=== PATIENT | female | born 2000 | race Caucasian/White ===

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

== ENCOUNTER → 2022-01-27 | Outpatient (CLI) | payer OTHER, SELFPAY | END | disposition home or self-care (01) | LOC: LABSPEC 15:08 | PROVIDERS: PCP Pediatrics; Referring Provider Otolaryngology; Visit Provider Otolaryngology | DX: J01.90 Acute sinusitis, unspecified (principal) | CPT/HCPCS: 87070; 87077; 87186; 87205 ==

== ENCOUNTER 2024-03-25 19:12 | Emergency (ER) | payer OTHER, SELFPAY ==
[2024-03-25 19:12] VITALS: BP 131/90; PULSE 129; RESP 18; TEMP 38.4; O2SAT 100; BMI 45.4
[2024-03-25 19:54] VITALS: TEMP 39.6
--- NOTE | 2024-03-25 20:02 | EDS_ITS ---
HPI History of Present Illness Chief Complaint: Fever Informant: patient and parent Onset/Context/Timing Onset: Yesterday Context: Gradual Onset Timing: Continuous Quality: Stabbing, throbbing Location: Forehead Worsened by: Nothing Relieved by: Nothing Narrative Narrative: Patient presents with fever, headache, nausea, vomiting, and sore throat that began yesterday. Patient had a fever up to 103 at home. Mother states patient had episode where she was convulsing. Mother stated this only lasted for few seconds. Mother states that the patient woke up quickly from this. Mother states she was somewhat confused after this but that only lasted for few seconds. Patient admits to a cough. Patient also admits to some wheezing. Patient states she had an injection of Dupixent recently but has never had any problems from prior injections. 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 current occupational exposures/hazards: No pets and animals: No leisure activities: sports history of recent travel: No sexually active: No Smoking Status: Never smoker alcohol intake: never substance use type: does not use well-balanced diet: daily or most days caffeine: Yes (1x/week) Type: coffee eating out: rarely or never during the past year weight has: remained stable what type of physical activity do you participate in: other details: [employer] Softball team - 1st place frequency: 5-6 times per week duration: > 90 minutes/day jonah/evangelical: [employer] seatbelt use: always do you feel safe at home: Yes ROS ROS ED Constitutional Constitutional ED: Reports fever(s); Denies chills Eyes Eyes: Denies blurry vision or change in vision ENT ENT ED: Reports sore throat; Denies rhinorrhea Cardiovascular Cardiovascular: Denies chest pain or palpitations Respiratory/Chest Respiratory/Chest: Reports cough; Denies dyspnea Gastrointestinal Gastrointestinal: Reports nausea and vomiting Genitourinary Genitourinary ED: Denies dysuria or hematuria Musculoskeletal Musculoskeletal: Reports neck pain; Denies back pain Integumentary Denies abscess or rash Neurologic Neurologic: Reports headache(s); Denies weakness Allergic/Immunologic Allergic/Immunologic ED: Denies mouth swelling or urticaria EXAM Physical Exam Const Vital Signs: 03/25/24 19:12 03/25/24 19:46 03/25/24 19:54 Temperature 101.2 F H 103.2 F H Temperature Source Temporal Oral Pulse Rate 129 H Respiratory Rate 18 Respiratory Effort Normal Non-Labored Blood Pressure 131/90 H Blood Pressure Mean 103 Pulse Ox 100 Oxygen Delivery Method Room Air 03/25/24 20:17 03/25/24 21:00 03/25/24 22:00 Temperature 103.2 F H 103.1 F H 99 F Temperature Source Oral Oral Oral Pulse Rate 121 H 118 H 108 H Respiratory Rate 20 H 20 H 20 H Respiratory Effort Blood Pressure 124/73 H 126/79 H 103/70 Blood Pressure Mean 90 94 81 Pulse Ox 97 98 99 Oxygen Delivery Method Room Air Room Air Room Air 03/25/24 23:00 Temperature Temperature Source Pulse Rate 108 H Respiratory Rate 16 Respiratory Effort Blood Pressure 119/62 Blood Pressure Mean 81 Pulse Ox 97 Oxygen Delivery Method Room Air Positive well nourished and well developed General Appearance ED: well developed and NAD HEENT Reports moist mucous membranes HEENT Narrative: There is some mild tenderness over the frontal sinuses. There is no tenderness over the maxillary sinuses. Neck supple and no JVD Resp normal respiratory effort and clear to auscultation bilaterally Cardio regular rate and regular rhythm GI non-tender and non-distended Palpation: soft Neuro oriented x3, CN's II-XII intact bilaterally and no sensory deficits noted Sensorium / Orientation: alert Motor Exam: strength 5/5 throughout Psych mental status grossly normal MDM MDM MDM Narrative Medical decision making narrative: Differential diagnosis includes strep pharyngitis, viral illness, sinusitis, pneumonia, gastroenteritis, urinary tract infection, and bronchitis. Chest x- ray will be obtained to assess for pneumonia and bronchitis. Urinalysis will be obtained to assess for urinary tract infection and hematuria. CT scan of the brain will be obtained to assess for sinusitis. CBC will be obtained to assess for leukocytosis and anemia. Basic metabolic profile will be obtained to assess for electrolyte abnormality and renal function. Serum hCG will be obtained to assess for . Rapid strep will be obtained to assess for strep pharyngitis. COVID-19, influenza, and RSV PCR will be obtained to assess for viral illness. Lab Data Attestation: I reviewed the patient's lab results. Lab results narrative: CBC was reviewed and was within normal limits. Basic metabolic profile was reviewed. Sodium was slightly low at 132. Glucose was slightly elevated at 110. The remainder is within normal limits. Serum hCG was reviewed and was negative. Urinalysis was reviewed. There is no evidence of urinary tract infection or hematuria. Labs: Laboratory Results - last 24 hr 03/25/24 03/25/24 21:08 21:24 WBC 11.0 RBC 5.01 Hgb 13.5 Hct 39.9 MCV 79.6 L MCH 26.9 L MCHC 33.8 RDW Std Deviation 36.1 RDW Coeff of Anselmo 12.7 Plt Count 246 MPV 10.5 Immature Gran % (Auto) 0.500 Neut % (Auto) 79.8 H Lymph % (Auto) 12.6 L Pacific % (Auto) 5.8 Eos % (Auto) 0.6 Baso % (Auto) 0.7 Absolute Neuts (auto) 8.8 H Absolute Lymphs (auto) 1.39 Nucleated RBC % 0 Sodium 132 L Potassium 3.8 Chloride 103 Carbon Dioxide 26.0 Anion Gap 3 L BUN 8 Creatinine 0.76 Estim Creat Clear Calc 154.81 Est GFR (MDRD) Af Amer 123 Est GFR (MDRD) Non-Af 101 BUN/Creatinine Ratio 10.5 Glucose 110 H Calcium 8.9 Serum , Qual NEGATIVE Urine Color Yellow Urine Clarity Sl. Cloudy Urine pH 8.0 Ur Specific [place] 1.010 Urine Protein Negative Urine Glucose (UA) Normal Urine Ketones Negative Urine Occult Blood Negative Urine Nitrite Negative Urine Bilirubin Negative Urine Urobilinogen Normal Ur Leukocyte Esterase Negative Urine RBC 0 SEEN Urine WBC 0-5 SEEN Ur Squamous Epith Cells 0-5 SEEN Urine Bacteria 1+ Urine Mucus 0 SEEN Radiography Chest X-Ray - ED: 2 View, Read by ED Physician, Read by Radiologist and Right Infiltrate Diagnostic Testing: Clinical Impression(s) from Imaging Studies Chest X-Ray 03/25/24 21:25 IMPRESSION: Right lower lobe consolidation consistent with lobar pneumonia. Electronically Signed: Hector Garduno DO at 21:38 EDT , PA and lateral chest x-rays obtained. There are 2 views. On my independent interpretation, there is right lower lobe infiltrate. Cardiac silhouette is normal. Bony thorax is normal. Radiologist also interpreted the x-ray and agrees. Treatment and Re-Evaluation :: Patient was given IV fluids and Tylenol here. Patient's temperature improved to 99. Patient was advised of her findings. Patient was feeling better on reevaluation. Patient was given a dose of Zithromax here. Patient was given a prescription for Zithromax. Patient instructed to follow-up with her primary care physician in 5 to 7 days. Patient was instructed to return if worse in any way. Patient understood and was agreeable with the plan. All questions were answered. Discharge Plan Triage Chief Complaint: Fever Other Complaint: Seizure ED Provider: Jesse Hyde Dx/Rx/DC Orders Clinical Impression: Right lower lobe pneumonia, Febrile illness Instructions: ED Pneumonia (Adult) Prescriptions: New azithromycin 250 mg tablet 250 mg PO DAILY Qty: 4 0RF No Action Dupixent Pen 200 mg/1.14 mL pen injector 200 mg subcut Q2W Primary Care Provider: Pardeep Schulz Referrals: Pardeep Schulz MD [Primary Care Provider] - 5-7 Days Print Language: Mauritian Disposition Disposition: Home, Self Care
[2024-03-25 20:17] VITALS: BP 124/73; PULSE 121; RESP 20; TEMP 39.6; O2SAT 97
[2024-03-25 21:00] VITALS: BP 126/79; PULSE 118; RESP 20; TEMP 39.5; O2SAT 98
[2024-03-25] MEDS: Acetaminophen 500 MG Tablet 1000 MG PO (21:15)
[2024-03-25] MEDS: 0.9% Normal Saline (1000mL) 1,000 ML 1000 ML IV (21:16)
[2024-03-25] MEDS: Ondansetron 4 MG/2 ML Vial IV (21:16)
--- NOTE | 2024-03-25 21:25 | RAD_ITS ---
INDICATION: Fever EXAMINATION/TECHNIQUE: X-RAY - XR Chest 2 Views COMPARISON: None. FINDINGS: LINES/DEVICES: None. LUNGS: Right lower lobe consolidation. No evidence of a pleural effusion or a pneumothorax. MEDIASTINUM AND CARDIOVASCULAR STRUCTURES: Cardiac silhouette is normal in size and contour. Mediastinum is unremarkable. BONES AND SOFT TISSUES: No acute abnormality. RAD/Chest PA and Lateral IMPRESSION: Right lower lobe consolidation consistent with lobar pneumonia. Electronically Signed: Hector Garduno DO at 21:38 EDT ,
[2024-03-25 21:38] LABS: Mucous, Urine 0 SEEN /hpf (<or=2+); Red Blood Cells-Urine 0 SEEN /hpf (0-5)
[2024-03-25 21:40] LABS: Absolute Lymphocyte Count 1.39 X10^3/uL (0.83-4.51); Absolute Neutrophil Count 8.8 X10^3/uL (2.0-7.7); Basophil# 0.08 X10^3/uL; Basophil% 0.7 % (0-1); Eosinophil# 0.07 X10^3/uL; Eosinophils% 0.6 % (0-5); Hematocrit 39.9 % (37-47); Hemoglobin 13.5 g/dL (12.0-15.0); Lymphocyte # 1.39 X10^3/ul (0.83-4.51); Lymphocyte % 12.6 % (19-41); Mean Corp Hgb Conc 33.8 g/dL (32-36); Mean Corpuscular Hgb 26.9 pg (27.0-32.0); Mean Corpuscular Volume 79.6 fL (81-99); Mean Platelet Vol. 10.5 fl (6.2-12.0); Monocyte# 0.64 X10^3/uL; Monocyte% 5.8 % (0-10); NRBC Flagged by Analyzer 0 % (0-5); Neutrophil # 8.76 X10^3/uL (2.7-7.7); Neutrophil % 79.8 % (47-70); Platelet Count 246 K/mm3 (150-450); RBC Distribution Width CV 12.7 % (11.6-14.6); RBC Distribution Width SD 36.1 fl (35.1-43.9); Red Blood Count 5.01 M/mm3 (4.2-5.4)
[2024-03-25 21:57] LABS: Internal QC Validated? YES +Cl - CLEAR BKGD; Pregnancy, Serum, hCG Quali. NEGATIVE Negative; Record Kit Lot#, Serum Preg. 772476
[2024-03-25 21:58] LABS: Anion Gap 3 (5-15); BUN 8 mg/dL (7-18); BUN/Creat Ratio 10.5 RATIO (10-20); Calcium,Total 8.9 mg/dL (8.5-10.1); Chloride 103 mmol/L (98-107); Creatinine, Serum 0.76 mg/dL (0.55-1.02); EST Glomerular Filtration Rate 101 mL/min (>60); Est Glom Filt Rate - Afr Amer 123 mL/min (>60); Estimated Creatinine Clearance 154.81 ml/min; Glucose 110 mg/dL (74-106); Potassium 3.8 mmol/L (3.5-5.1); Sodium Level 132 mmol/L (136-145)
[2024-03-25 21:58] LABS: Color, Urine Yellow (Yellow); Glucose, Dipstick Normal (Normal); Ketone-Dipstick Negative (Negative); Leukocyte Esterase-Dipstick Negative /ul (Negative); Nitrite-Dipstick Negative (Negative); Occult Blood-Urine Negative /ul (Negative); Protein-Dipstick Negative (Negative); Urine Bilirubin Dipstick Negative (Negative); Urine Clarity Sl. Cloudy (Clear); Urine Urobilinogen Normal (Normal)
[2024-03-25 22:00] VITALS: BP 103/70; PULSE 108; RESP 20; TEMP 37.2; O2SAT 99
[2024-03-25 22:14] LABS: Bacteria 1+ /hpf (None Seen); Squamous Epithelial Cells - UA 0-5 SEEN /hpf (5-10); White Blood Cells 0-5 SEEN /hpf (0-5)
[2024-03-25 23:00] VITALS: BP 119/62; PULSE 108; RESP 16; O2SAT 97
[2024-03-26 00:24] VITALS: BP 122/57; PULSE 104; RESP 20; TEMP 37.7; O2SAT 98
[2024-03-26] MEDS: Azithromycin 250 MG Tablet 500 MG PO (00:24)
== END 2024-03-26 00:29 | disposition home or self-care (01) ==
PROVIDERS: Emergency Provider Emergency Medicine; PCP Pediatrics; Visit Provider Emergency Medicine
DX: J18.9 Pneumonia, unspecified organism (principal); R50.9 Fever, unspecified
CPT/HCPCS: 71046; 80048; 81001; 84703; 85025; 87631; 87651; 99285; J7030; A4216; J2405